=== PATIENT | female | born 1980 | race Caucasian/White ===

== ENCOUNTER 2022-02-26 21:39 | Observation (INO) | payer BC, OTHER ==
[2022-02-26] MEDS ORDERED: Propranolol 10 MG TAB PO SCH (22:30)
[2022-02-26 22:33] LABS: #Eosinphils 0.1 10x3/uL (0.0-0.5); #Monocytes 0.4 10x3/uL (0.0-1.1); #Neutrophils 3.6 10x3/uL (1.5-8.4); %Basophils 0.3 % (0.0-2.0); %Eosinophils 1.5 % (0.0-6.0); %Lymphocytes 29.2 % (18.0-47.0); %Monocytes 7.2 % (0.0-10.0); %Neutrophils 61.5 % (40.0-75.0); Hemoglobin 12.5 g/dL (12.0-15.5); Mean Corpuscular HGB CONC 33.3 g/dL (32.0-36.0); Mean Platelet Volume 10.1 fl (7.4-10.4); Platelet Count 333 10x3/uL (150-450); RBC Distribution Width 12.5 % (11.5-14.5); Red Blood Cell (RBC) Count 4.31 10x6/uL (3.90-5.03); White Blood Cell (WBC) Count 5.9 10x3/uL (3.5-10.5)
[2022-02-26 22:42] LABS: BHCG - Serum Negative (NEGATIVE); Pregs Control Background? CLEAR/WHITE (CLR/WHITE); Pregs Control Bar Appear? YES (CONTROL BAR)
[2022-02-26 22:54] LABS: ALT (SGPT) 7 U/L (8-55); AST (SGOT) 10 U/L (5-34); Alkaline Phosphatase 47 U/L (40-110); Anion Gap 15 mmol/L (10-20); BUN (Urea Nitrogen) 9 mg/dL (7.0-18.7); Bilirubin, Total 0.3 mg/dL (0.2-1.2); CK (CPK) 57 U/L (29-168); Calc. Creatinine Clearance 0 mL/min (70-130); Calcium 8.4 mg/dL (7.8-10.44); Carbon Dioxide 23 mmol/L (22-29); Chloride 106 mmol/L (98-107); Estimated GFR 90; Globulin 2.7 g/dL (2.4-3.5); Glucose 180 mg/dL (70-105); Potassium 3.5 mmol/L (3.5-5.1); Protein, Total 6.7 g/dL (6.0-8.3); Sodium 140 mmol/L (136-145)
[2022-02-26 23:08] LABS: Free T4 (Free Thyroxine) 1.17 ng/dL (0.70-1.48)
[2022-02-27] MEDS ORDERED: Acetaminophen 325 MG TAB PO PRN (00:43)
[2022-02-27] MEDS ORDERED: Senokot S 8.6-50 MG TAB PO PRN (00:43)
[2022-02-27] MEDS ORDERED: Guaifenesin DM 100-10/5 ML UDCUP PO PRN (00:43)
[2022-02-27] MEDS ORDERED: Zolpidem Tartrate 5 MG TAB PO PRN (00:43)
[2022-02-27] MEDS ORDERED: Ondansetron PF 4 MG/2 ML Vial IVP PRN (00:43)
[2022-02-27] MEDS ORDERED: Metoprolol Tartrate 25 MG TAB PO SCH (01:00)
[2022-02-27] MEDS ORDERED: Metoprolol Tartrate 25 MG TAB ONE (01:07)
[2022-02-27 01:14] LABS: Lactic Acid 1.4 mmol/L (0.5-2.2)
[2022-02-27 02:03] LABS: SARS-CoV-2 NAA Rapid Test Not Detected (NotDetected)
[2022-02-27 04:18] LABS: Free T4 (Free Thyroxine) 1.09 ng/dL (0.70-1.48); Thyroid Stimulating Hormone 0.0068 uIU/mL (0.35-4.94)
[2022-02-27] MEDS ORDERED: metFORMIN 500 MG TAB ONE (07:39)
[2022-02-27 08:01] VITALS: BP 117/76
[2022-02-27] MEDS ORDERED: metFORMIN 500 MG TAB PO SCH (09:00)
[2022-02-27] MEDS ORDERED: Atenolol 25 MG TAB PO SCH ×2 (09:00)
[2022-02-27 09:41] LABS: Troponin I Less than 0.010 ng/mL (< 0.028)
[2022-02-28] MEDS ORDERED: Levothyroxine Sodium 100 MCG TAB PO SCH (06:00)
== END 2022-02-27 16:52 | disposition home or self-care (01) ==
LOC: CSHERS 21:39 → CSHERHOLD 02-27 00:43
PROVIDERS: ADMIT Student in an Organized Health Care Education/Training Program; ATTEND Student in an Organized Health Care Education/Training Program
DX: R07.9 Chest pain, unspecified (principal); E03.9 Hypothyroidism, unspecified; E28.2 Polycystic ovarian syndrome; Z79.899 Other long term (current) drug therapy; R00.0 Tachycardia, unspecified; E05.80 Other thyrotoxicosis without thyrotoxic crisis or storm; R73.9 Hyperglycemia, unspecified; R00.2 Palpitations; Z79.84 Long term (current) use of oral hypoglycemic drugs; Z88.8 Allergy status to other drugs, medicaments and biological substances; Z20.822 Contact with and (suspected) exposure to COVID-19
CPT/HCPCS: 36415; 71045; 80053; 82550; 83605; 83735; 84439; 84443; 84481; 84484; 84703; 85025; 93005; 96360; 96361; G0378; U0002

== ENCOUNTER 2022-08-10 08:01 | Emergency (ER) | payer BC, OTHER ==
[2022-08-10] MEDS ORDERED: Ondansetron PF 4 MG/2 ML Vial ONE (08:41)
[2022-08-10] MEDS ORDERED: Morphine 4 MG/ML VIAL ONE (08:41)
[2022-08-10 08:51] LABS: #Basophils 0.1 10x3/uL (0.0-0.2); #Eosinphils 0.1 10x3/uL (0.0-0.5); #Monocytes 0.3 10x3/uL (0.0-1.1); %Eosinophils 1.8 % (0.0-6.0); %Lymphocytes 30.6 % (18.0-47.0); %Monocytes 6.7 % (0.0-10.0); %Neutrophils 59.5 % (40.0-75.0); Hemoglobin 13.2 g/dL (12.0-15.5); Mean Corpuscular HGB CONC 32.4 g/dL (32.0-36.0); Mean Corpuscular Volume 86.2 fl (81.6-98.3); Mean Platelet Volume 10.4 fl (7.4-10.4); Platelet Count 349 10x3/uL (150-450); RBC Distribution Width 13.2 % (11.5-14.5); Red Blood Cell (RBC) Count 4.72 10x6/uL (3.90-5.03); White Blood Cell (WBC) Count 5.1 10x3/uL (3.5-10.5)
[2022-08-10 09:10] LABS: ALT (SGPT) 10 U/L (8-55); AST (SGOT) 11 U/L (5-34); Albumin 4.1 g/dL (3.5-5.0); Alkaline Phosphatase 42 U/L (40-110); Anion Gap 17 mmol/L (10-20); BUN (Urea Nitrogen) 9 mg/dL (7.0-18.7); Bilirubin, Total 0.4 mg/dL (0.2-1.2); Calc. Creatinine Clearance 0 mL/min (70-130); Calcium 8.5 mg/dL (7.8-10.44); Carbon Dioxide 19 mmol/L (22-29); Chloride 109 mmol/L (98-107); Estimated GFR 84; Globulin 3.3 g/dL (2.4-3.5); Glucose 93 mg/dL (70-105); Lipase 32 U/L (8-78); Potassium 3.8 mmol/L (3.5-5.1); Protein, Total 7.4 g/dL (6.0-8.3); Sodium 141 mmol/L (136-145)
[2022-08-10 09:41] LABS: Bilirubin Neg (Negative); Blood, Urine Negative (Negative); Clarity Clear (Clear); Glucose, Urine (Dipstick) Normal (Negative); Ketone, Urine Negative (Negative); Leukocyte Negative (Negative); Nitrite Negative (Negative); Protein, Urine (Dipstick) Negative (Neg-Trace); Urobilinogen Normal mg/dL (Less than 2)
[2022-08-10 09:43] LABS: Pregnancy Test - Urine (BHCG) Negative (Negative); Pregu Control Background? CLEAR/WHITE (CLR/WHITE); Pregu Control Bar Appear? YES (CONTROL BAR)
[2022-08-10] MEDS ORDERED: Iopamidol 370 76% 100 ML VIAL ONE (11:29)
== END 2022-08-10 10:09 | disposition home or self-care (01) ==
LOC: CSHERS 08:01
DX: K52.9 Noninfective gastroenteritis and colitis, unspecified (principal)
CPT/HCPCS: 74177; 80053; 81003; 81025; 83690; 84484; 85025; 93005; 96374; 96375; J2270; J2405; Q9967